=== PATIENT | male | born 1980 | race Caucasian/White ===

== ENCOUNTER 2018-10-22 08:36 | Inpatient (IN) ==
[2018-10-22 08:45] VITALS: BMI 22.8
--- NOTE | 2018-10-22 09:29 | DR.EYE ---
HPI Time Seen Time Seen by Provider: 10/22/18 09:13 PCP Primary Care Physician: WU HPI Comment HPI Comment: PATIENT IS 37YR OLD WHITE MALE WITH INCREASING REDNESS AND SWELLING RIGHT PERIORBITAL AREA TIMES 4 DAYS. FEVER ON AND OFF AND ON BACTRIM DS AND MOTRIN ALSO. NOT GETTING BETTER. REDNESS IS INCREASING. DENIES PAIN IN THE EYE BALL. PAIN RT PERIORBITAL AREA, 7/10, THROBBING AND SHARP RADIATING TO RIGHT NOSE AND RIGHT FOREHEAD.MEDICATION TAKEN AT HOME IS NOT HELPING PAIN. Nurses notes reviewed Nurses Notes Review: Yes Complaint Chief Complaint Doctors Comments: RIGHT EYE SWOLLEN AND RED TIMES 4DAYS. Chief Complaint:: R EYE SWOLLEN SINCE MONDAY HAD A BUMP AND HAD NURSE LOOK AT IT AND MONDAY IT WAS MORE SWOLLEN Self Treatment fo Chief Complaint: BACTRIM SINCE MONDAY AND IBUPROFEN Source History Provided: Patient Mode of arrival Mode of Arrival: Wheelchair Timing Onset of Chief Complaint: 10/19/18 Came on: Suddenly Quality Quality: Pain Location Location: Right eye Context Onset: Spontaneous Recent: None History of: None Last Tetanus: Unknown Severity Symptom severity: Severe Associated signs and symptoms Associated signs and symptoms: Fever, Tearing and Photophobia Other history Other history: POOR RIGHT EYE VISION IN THE PAST. PMH PMH Past Medical History: No Past Medical History Comment: HEP C Past Surgical History: No Family History History of Family Medical Conditions: Yes Family Medical History: Diabetes Mellitus, Cancer, CO and Hypertension Social History Type of Tobacco Use: Cigarettes Does any household member use tobacco: No Alcohol Use: None Do you use any recreational Drugs:: Yes ([facility]) Lives With: Other Lives Where: LONGTERM infectious screening In the last 2 months have you had wt loss of >10#?: NO Have you had fever, night sweats or hemotysis?: No Have you traveled outside the country in the last 6 months?: No Isolation: Standard ROS Review of Systems Constitutional: See HPI and Fever; negative Chills, Weakness and Fatigue Eyes: See HPI, Eye Pain, Blurred Vision (RT EYE), Tearing, Discharge and Photophobia ENTM: No Symptoms Reported and See HPI; negative Ear Pain, Nose Discharge, Nose Congestion and Throat Pain Respiratoy: See HPI, Non-Productive Cough, Short of Breath and Wheezing; negative Moist Cough Cardiovascular: See HPI; negative Chest Pain, Edema and Palpitations Gastrointestinal/Abdominal: See HPI; negative Abdominal Pain, Constipation, Diarrhea, Nausea and Vomiting Genitourinary: No Symptoms Reported and See HPI; negative Dysuria, Frequency and Hematuria Neurological: See HPI, Headache and Weakness; negative Dizziness Musculoskeletal: See HPI and Back Pain (CRONIC BACK PAIN.); negative Muscle Pain and Neck Pain Integumentary: See HPI, Change in Color (SWELLING AND REDNESS RIGHT ORBIT.) and Lesions (RT PERIORBITAL AREA.); negative Juandice Hematologic/Lymphatic: See HPI, Swollen Glands and Lymphadenopathy; negative Easy Bruising Endocrine: No Symptoms Reported and See HPI; negative Increased Thirst, Increased Urine and Decreased Appetite Psychiatric: No Symptoms Reported and See HPI All Other Systems: Reviewed and Negative PE Vital Signs Vitals: Temperature 98.4 F Pulse Rate [Right Brachial] 74 Pulse Rate 79 Respiratory Rate 18 Blood Pressure [Right Arm] 115/66 Blood Pressure 117/69 O2 Sat by Pulse Oximetry 98 General Limitations: No Limitations General Appearance: Alert and In No Apparent Distress; negative In Distress Head Head Exam: Other (SWELLING AND REDNESS RIGHT PERIORBITAL AREA, RIGHT NOSE AND RIGHT FOREHEAD. RIGHT EYE IS CLOSE.) Eyes Eye exam: negative Scleral Icterus and Conjunctival Injection Eyelids: Erythema: Right and Swelling Eyelid: Right Pupils: Regular, Round: Bilateral Sclera/Conjunctival: Normal Inspection: Bilateral ENT ENT Exam: Normal Exam, Normal Oropharynx, Normal External Ear Exam, Mucous Membranes Moist and TM's Normal Bilaterally External Ear Exam: negative Mastoid Tenderness, Pain with Movement and External Tenderness TM/Canal Exam: Bilateral: Normal Nose Exam: Normal Nose Exam; negative Nasal Deviation and Septal Hematoma Mouth Exam: Normal Inspection; negative Trismus, Lip Swelling and Tongue Swelling Throat Exam: Normal Inspection; negative Tonsillar Erythema, Tonsillomegaly and Tonsillar Exudate Neck Neck Exam: Normal Inspection, Full ROM, Trachea Midline and Lymphadenopathy; negative Tenderness Chest Chest Inspection: Normal Inspection and Symmetric Chest Wall Rise; negative Tenderness and Rash Respiratory Respiratory Exam: Normal Lung Sounds Bilat; negative Accessory Muscle Use, Chest Wall Tenderness and Respiratory Distress Respiratory Exam: Bilateral: Clear to Auscultation Cardiovascular Cardiovascular Exam: Regular Rate, Normal Rhythm and Normal Heart Sounds; negative Systolic Murmur and Diastolic Murmur Abdominal Exam Abdominal Exam: Normal Inspection, Normal Bowel Sounds and Soft; negative Tenderness Extremities Extremities Exam: Normal Inspection and Normal Capillary Refill; negative Tenderness and Edema Back Back Exam: Normal Inspection and (R) Sciatic Notch Tenderness; negative Tenderness, Paraspinal Tenderness and Vertebral Tenderness Neurologic Neurological Exam: Alert and Oriented X3; negative Motor Sensory Deficit Psychiatric Psychiatric Exam: Normal Affect and Normal Mood Skin Skin Exam: Dry, Rash and Erythema; negative Normal Color Type of Lesion: Abscess Distribution: Face Description: Tenderness, Erythematous and Swelling MDM Differential Diagnosis Differential Diagnosis: Periorbital cellulitis COURSE Treatment Treatment: SEE ORDERS. Consultation Consultation Comments: DISCUSS PATIENT WITH DR. CARLSON. HE WILL ADMIT PATIENT. TIME 2MINS. ADMISSION ORDERS DONE. Education/Counseling Education/Counseling: Patient Educated On: Diagnosis ROR Labs Reviewed Laboratory Results Reviewed?: Yes Result Diagrams: 10/24/18 04:38 10/24/18 04:28 Laboratory: 10/22/18 09:51 Blood Blood Culture - Preliminary 10/22/18 10:13 Blood Blood Culture - Preliminary 10/23/18 17:54 Face Gram Stain - Final 10/23/18 17:54 Face Wound Culture - Preliminary WBC 6.7 X10^3/uL (3.6-10.0) 10/24/18 04:38 RBC 4.05 X10^6/uL (4.7-6.0) L 10/24/18 04:38 Hgb 12.3 g/dL (13.5-18.0) L 10/24/18 04:38 Hct 37.1 % (42.0-54.0) L 10/24/18 04:38 MCV 91.7 fL (80.0-100.0) 10/24/18 04:38 MCH 30.4 pg (27.0-34.0) 10/24/18 04:38 MCHC 33.2 g/dL (33.0-35.0) 10/24/18 04:38 RDW 13.4 % (11.6-16.5) 10/24/18 04:38 Plt Count 265 X10^3/uL (150.0-450.0) 10/24/18 04:38 MPV 9.5 fL (7.4-11.0) 10/24/18 04:38 Neut % (Auto) 53.7 % (42.0-75.0) 10/24/18 04:38 Lymph % (Auto) 35.5 % (21.0-51.0) 10/24/18 04:38 Summers % (Auto) 7.4 % (0.0-13.0) 10/24/18 04:38 Eos % (Auto) 2.4 % (0.9-2.9) 10/24/18 04:38 Baso % (Auto) 1.0 % (0.2-1.0) 10/24/18 04:38 Neut # (Auto) 3.6 x10^3/uL (2.2-4.8) 10/24/18 04:38 Lymph # (Auto) 2.4 X10^3/uL (1.3-2.9) 10/24/18 04:38 Summers # (Auto) 0.5 x10^3/uL (0.3-0.8) 10/24/18 04:38 Eos # (Auto) 0.2 x10^3/uL (0.0-0.2) 10/24/18 04:38 Baso # (Auto) 0.1 X10^3/uL (0.0-0.1) 10/24/18 04:38 Absolute Nucleated RBC 0.0 /100WBC 10/24/18 04:38 Sodium 142 mmol/L (136-145) 10/24/18 04:28 Corrected Sodium TNP 10/24/18 04:28 Potassium 4.5 mmol/L (3.5-5.1) 10/24/18 04:28 Chloride 108 mmol/L (98-107) H 10/24/18 04:28 Carbon Dioxide 25.6 mmol/L (21-32) 10/24/18 04:28 BUN 10 mg/dL (7-18) 10/24/18 04:28 Creatinine 0.92 mg/dL (0.70-1.30) 10/24/18 04:28 Est GFR (MDRD) Af Amer > 60 (>60) 10/24/18 04:28 Est GFR (MDRD) Non-Af > 60 (>60) 10/24/18 04:28 Glucose 89 mg/dL (65-99) 10/24/18 04:28 Lactic Acid 1.9 mmol/L (0.4-2.0) 10/22/18 10:13 Calcium 8.4 mg/dL (8.5-10.1) L 10/24/18 04:28 Corrected Calcium 9.5 mg/dL (8.5-10.1) 10/24/18 04:28 Total Bilirubin 0.10 mg/dL (0.2-1.0) L 10/24/18 04:28 AST 18 Units/L (15-37) 10/24/18 04:28 ALT 36 Units/L (12-78) 10/24/18 04:28 Alkaline Phosphatase 42 Units/L (46-116) L 10/24/18 04:28 C-Reactive Protein 30.80 mg/L (0-3.0) H 10/22/18 10:13 Total Protein 6.2 g/dL (6.4-8.2) L 10/24/18 04:28 Albumin 2.6 g/dL (3.4-5.0) L 10/24/18 04:28 Globulin 3.6 g/dL (2.5-4.5) 10/24/18 04:28 Albumin/Globulin Ratio 0.7 Ratio (1.1-2.1) L 10/24/18 04:28 Vancomycin Trough 17.6 ug/mL (15-20) 10/23/18 20:08 XRAY XRAY Interpreted by: Radiologist XRAY Findings: REPORT ON THIS RECORD NOTED AND DISCUSS WITH PATIENT. Diagnosis Discharge Problem: Cellulitis of right orbit
[2018-10-22] MEDS ORDERED: NS 1000 ML 1,000 ML IV ONE (09:40)
[2018-10-22] MEDS ORDERED: TORADOL 30 MG VIAL IVP ONE (09:40)
[2018-10-22] MEDS ORDERED: NS 1000 ML 1,000 ML ONE (10:01)
[2018-10-22] MEDS ORDERED: TORADOL 30 MG VIAL ONE (10:02)
[2018-10-22 10:40] LABS: BASOPHILS # (AUTO) 0.1 X10^3/uL (0.0-0.1); BASOPHILS % (AUTO) 0.5 % (0.2-1.0); EOSINOPHILS % (AUTO) 0.3 % (0.9-2.9); HEMOGLOBIN 13.6 g/dL (13.5-18.0); LYMPHOCYTES # (AUTO) 1.4 X10^3/uL (1.3-2.9); LYMPHOCYTES % (AUTO) 10.9 % (21.0-51.0); MEAN CORPUSCULAR HGB CONC 33.3 g/dL (33.0-35.0); MEAN CORPUSCULAR VOLUME 90.3 fL (80.0-100.0); MEAN PLATELET VOLUME 9.1 fL (7.4-11.0); MONOCYTES # (AUTO) 0.7 x10^3/uL (0.3-0.8); MONOCYTES % (AUTO) 5.3 % (0.0-13.0); NEUTROPHILS # (AUTO) 10.9 x10^3/uL (2.2-4.8); PLATELET COUNT 290 X10^3/uL (150.0-450.0); RED BLOOD COUNT 4.54 X10^6/uL (4.7-6.0); RED CELL DISTRIBUTION WIDTH 13.2 % (11.6-16.5); WHITE BLOOD COUNT 13.1 X10^3/uL (3.6-10.0)
[2018-10-22 10:54] LABS: LACTIC ACID 1.9 mmol/L (0.4-2.0)
[2018-10-22 10:55] LABS: ALANINE AMINOTRANSFERASE 48 Units/L (12-78); ALBUMIN 3.6 g/dL (3.4-5.0); ALKALINE PHOSPHATASE 60 Units/L (46-116); ASPARTATE AMINO TRANSFERASE 31 Units/L (15-37); BLOOD UREA NITROGEN 16 mg/dL (7-18); CALCIUM 9.5 mg/dL (8.5-10.1); CARBON DIOXIDE 27.7 mmol/L (21-32); CHLORIDE 103 mmol/L (98-107); CREATININE 1.07 mg/dL (0.70-1.30); SODIUM 139 mmol/L (136-145); TOTAL PROTEIN 8.3 g/dL (6.4-8.2); eGFR NON BLACK RACES > 60 (>60)
[2018-10-22] MEDS ORDERED: NS 100 ML IV 100 ML ONE (11:32)
[2018-10-22] MEDS ORDERED: VANCOMYCIN HCL 1 GM VIAL 1 G in D5W 250 ML IV 250 ML IV ONE (12:20)
--- NOTE | 2018-10-22 12:21 | CT ---
HISTORY: Swelling right eye Study: Maxillofacial CT with contrast Comparison: None Technique: Axial post-contrast images with coronal and sagittal reformats. Dose reduction procedures were used with mA/kv adjusted for body size. Findings: There is marked soft tissue swelling over the right side of the nose, the right upper and right lower eyelids. There is no focal well-marginated fluid collection to suggest abscess. Findings would seem most consistent with a cellulitis. The right globe is intact. The left lobe is intact. Retro-orbital soft tissues appear within normal limits bilaterally. There is no involvement of the retro-orbital soft tissues with the inflammatory process. Mild inflammatory changes present in several anterior ethmoid air cells on the right. The remainder of the paranasal sinuses are clear. The mandible, nasal bones, maxillofacial bones and orbital bones appear intact. The mastoid air cells and middle ear spaces are intact. IMPRESSION: Marked soft tissue swelling over the right side of the nose and right eyelids but without a focal drainable fluid collection to suggest abscess. Findings would seem most consistent with cellulitis. There is no involvement of the retro-orbital soft tissues. Mild inflammatory change in several anterior right ethmoid air cells. The remainder of the paranasal sinuses are clear. No definite bony abnormality identified Reported By:
[2018-10-22] MEDS ORDERED: NS 250 ML IV 250 ML ONE (12:27)
[2018-10-22] MEDS ORDERED: VANCOMYCIN HCL 1 GM VIAL ONE (12:27)
[2018-10-22] MEDS ORDERED: MORPHINE SULFATE INJ 2 MG INJ IVP PRN (13:38)
[2018-10-22] MEDS ORDERED: ZOFRAN TAB 4 MG PO PRN (13:38)
[2018-10-22] MEDS ORDERED: MOTRIN TAB 600 MG PO PRN (13:38)
[2018-10-22] MEDS: ZOSYN VIAL 3.375 GRAMS 3.375 G in NS 100 ML IV + SPIKE MINIBAG* 100 ML IV SCH ×2 (14:46→22:34)
[2018-10-22] MEDS ORDERED: VERSED ONE (15:51)
[2018-10-22] MEDS ORDERED: DIPRIVAN VIAL ONE (15:51)
[2018-10-22] MEDS ORDERED: ULTRAM PO PRN (18:13)
[2018-10-22] MEDS: NS 1000 ML 1,000 ML IV SCH ×2 (19:42→21:35)
[2018-10-22] MEDS: VANCOMYCIN HCL 1 GM VIAL 1 G in D5W 250 ML IV 250 ML IV SCH (21:00)
[2018-10-22] MEDS: AMBIEN PO PRN (23:02)
[2018-10-23] MEDS: VANCOMYCIN HCL 1 GM VIAL 1 G in D5W 250 ML IV 250 ML IV SCH ×3 (05:01→21:07)
[2018-10-23] MEDS: NS 1000 ML 1,000 ML IV SCH ×4 (05:01→22:14)
[2018-10-23 05:26] LABS: BASOPHILS % (AUTO) 0.4 % (0.2-1.0); EOSINOPHILS # (AUTO) 0.1 x10^3/uL (0.0-0.2); EOSINOPHILS % (AUTO) 1.1 % (0.9-2.9); HEMATOCRIT 37.8 % (42.0-54.0); HEMOGLOBIN 12.6 g/dL (13.5-18.0); LYMPHOCYTES # (AUTO) 2.5 X10^3/uL (1.3-2.9); LYMPHOCYTES % (AUTO) 25.7 % (21.0-51.0); MEAN CORPUSCULAR HEMOGLOBIN 30.1 pg (27.0-34.0); MEAN CORPUSCULAR HGB CONC 33.3 g/dL (33.0-35.0); MEAN CORPUSCULAR VOLUME 90.6 fL (80.0-100.0); MEAN PLATELET VOLUME 9.6 fL (7.4-11.0); MONOCYTES # (AUTO) 0.8 x10^3/uL (0.3-0.8); NEUTROPHILS # (AUTO) 6.4 x10^3/uL (2.2-4.8); NEUTROPHILS % (AUTO) 64.8 % (42.0-75.0); PLATELET COUNT 257 X10^3/uL (150.0-450.0); RED BLOOD COUNT 4.17 X10^6/uL (4.7-6.0); RED CELL DISTRIBUTION WIDTH 13.6 % (11.6-16.5); WHITE BLOOD COUNT 9.9 X10^3/uL (3.6-10.0)
[2018-10-23 05:36] LABS: ALANINE AMINOTRANSFERASE 39 Units/L (12-78); ALBUMIN 2.8 g/dL (3.4-5.0); ALKALINE PHOSPHATASE 47 Units/L (46-116); ASPARTATE AMINO TRANSFERASE 19 Units/L (15-37); BLOOD UREA NITROGEN 10 mg/dL (7-18); CALCIUM 8.4 mg/dL (8.5-10.1); CARBON DIOXIDE 24.5 mmol/L (21-32); CHLORIDE 108 mmol/L (98-107); COR CA(FOR HYPOALB) 9.4 mg/dL (8.5-10.1); COR NA(FOR HYPERGLY) 141 mmol/L (136-145); CREATININE 0.95 mg/dL (0.70-1.30); SODIUM 141 mmol/L (136-145); TOTAL PROTEIN 6.6 g/dL (6.4-8.2); eGFR NON BLACK RACES > 60 (>60)
[2018-10-23] MEDS: ZOSYN VIAL 3.375 GRAMS 3.375 G in NS 100 ML IV + SPIKE MINIBAG* 100 ML IV SCH ×3 (05:58→22:13)
[2018-10-23] MEDS: TORADOL 30 MG VIAL IVP PRN ×2 (09:16→16:00)
[2018-10-23] MEDS ORDERED: MIRALAX POWDER (1 DOSE 17 G) PO PRN (09:17)
[2018-10-23] MEDS: NORCO 5/325 MG TAB PO PRN ×2 (10:24→10:27)
[2018-10-23 15:27] LABS: CREATININE 1.01 mg/dL (0.70-1.30); VANCOMYCIN,TROUGH 7.7 ug/mL (15-20)
[2018-10-23] MEDS ORDERED: FENTANYL INJ 100 mcg ONE (17:16)
[2018-10-23 20:33] LABS: CREATININE 1.04 mg/dL (0.70-1.30); VANCOMYCIN,TROUGH 17.6 ug/mL (15-20)
[2018-10-23] MEDS: AMBIEN PO PRN (21:07)
[2018-10-23] MEDS ORDERED: PHARMACY COMMENT IV NR (21:30)
[2018-10-24 05:08] LABS: BASOPHILS # (AUTO) 0.1 X10^3/uL (0.0-0.1); EOSINOPHILS # (AUTO) 0.2 x10^3/uL (0.0-0.2); EOSINOPHILS % (AUTO) 2.4 % (0.9-2.9); HEMATOCRIT 37.1 % (42.0-54.0); HEMOGLOBIN 12.3 g/dL (13.5-18.0); LYMPHOCYTES # (AUTO) 2.4 X10^3/uL (1.3-2.9); LYMPHOCYTES % (AUTO) 35.5 % (21.0-51.0); MEAN CORPUSCULAR HEMOGLOBIN 30.4 pg (27.0-34.0); MEAN CORPUSCULAR HGB CONC 33.2 g/dL (33.0-35.0); MEAN CORPUSCULAR VOLUME 91.7 fL (80.0-100.0); MEAN PLATELET VOLUME 9.5 fL (7.4-11.0); MONOCYTES # (AUTO) 0.5 x10^3/uL (0.3-0.8); MONOCYTES % (AUTO) 7.4 % (0.0-13.0); NEUTROPHILS # (AUTO) 3.6 x10^3/uL (2.2-4.8); NEUTROPHILS % (AUTO) 53.7 % (42.0-75.0); PLATELET COUNT 265 X10^3/uL (150.0-450.0); RED BLOOD COUNT 4.05 X10^6/uL (4.7-6.0); RED CELL DISTRIBUTION WIDTH 13.4 % (11.6-16.5); WHITE BLOOD COUNT 6.7 X10^3/uL (3.6-10.0)
[2018-10-24 05:14] LABS: ALANINE AMINOTRANSFERASE 36 Units/L (12-78); ALBUMIN 2.6 g/dL (3.4-5.0); ALKALINE PHOSPHATASE 42 Units/L (46-116); ASPARTATE AMINO TRANSFERASE 18 Units/L (15-37); BLOOD UREA NITROGEN 10 mg/dL (7-18); CALCIUM 8.4 mg/dL (8.5-10.1); CARBON DIOXIDE 25.6 mmol/L (21-32); CHLORIDE 108 mmol/L (98-107); COR CA(FOR HYPOALB) 9.5 mg/dL (8.5-10.1); CREATININE 0.92 mg/dL (0.70-1.30); SODIUM 142 mmol/L (136-145); TOTAL PROTEIN 6.2 g/dL (6.4-8.2); eGFR NON BLACK RACES > 60 (>60)
[2018-10-24] MEDS: NS 1000 ML 1,000 ML IV SCH ×4 (05:16→22:07)
[2018-10-24] MEDS: VANCOMYCIN HCL 1 GM VIAL 1 G in D5W 250 ML IV 250 ML IV SCH ×3 (05:16→22:24)
[2018-10-24] MEDS: ZOSYN VIAL 3.375 GRAMS 3.375 G in NS 100 ML IV + SPIKE MINIBAG* 100 ML IV SCH ×3 (05:18→22:52)
[2018-10-24] MEDS: TORADOL 30 MG VIAL IVP PRN (16:46)
[2018-10-24] MEDS: NORCO 5/325 MG TAB PO PRN ×2 (19:01→23:20)
[2018-10-24] MEDS: AMBIEN PO PRN (20:44)
[2018-10-24 22:38] LABS: CREATININE 0.91 mg/dL (0.70-1.30); VANCOMYCIN,TROUGH 10.5 ug/mL (15-20)
[2018-10-25] MEDS: NS 1000 ML 1,000 ML IV SCH ×2 (05:10→07:47)
[2018-10-25] MEDS: VANCOMYCIN HCL 1 GM VIAL 1 G in D5W 250 ML IV 250 ML IV SCH (05:20)
[2018-10-25] MEDS ORDERED: PHARMACY COMMENT IV NR ×2 (05:30→21:30)
[2018-10-25] MEDS: ZOSYN VIAL 3.375 GRAMS 3.375 G in NS 100 ML IV + SPIKE MINIBAG* 100 ML IV SCH (06:20)
[2018-10-25 09:34] VITALS: BP 142/75
== END 2018-10-25 11:10 | DRG 121 ==
LOC: ER 08:36 → MED/SURG 13:38
PROVIDERS: ADMIT Obstetrics & Gynecology Obstetrics; ATTEND Obstetrics & Gynecology Obstetrics
DX: H05.011 Cellulitis of right orbit; R79.82 Elevated C-reactive protein (CRP); H44.001 Unspecified purulent endophthalmitis, right eye; B95.62 Methicillin resistant Staphylococcus aureus infection as the cause of diseases classified elsewhere
CPT/HCPCS: 36415; 70487; 80053; 80202; 82565; 83605; 85025; 86140; 87040; 87070; 87075; 87077; 87186; 87205; 96365; 96367; 96374; 96375; A4222; J1885; J2250; J2543; J2704; J3010; J3370; J7030; J7050; J7060